=== PATIENT | male | born 1990 | race Caucasian/White ===

== ENCOUNTER 2019-04-23 17:10 | Emergency (ER) | payer OTHER ==
[~2019-04-23] VITALS: Ht 182.9 cm; Wt 83.9 kg
[~2019-04-23 17:10] MED LIST: ACETAMINOPHEN-1 EAC1 PO; MOTION RELIEF25 MG PO; NAPROSYN500 MG PO
[2019-04-23 18:31] LABS: ABSOLUTE BASOPHILS 0.1 thou/uL (0.0-0.2); ABSOLUTE EOSINOPHILS 0.2 thou/uL (0.0-0.7); ABSOLUTE LYMPHOCYTES 2.9 thou/uL (0.8-5.3); ABSOLUTE MONOCYTES 0.9 thou/uL (0.0-1.2); ABSOLUTE NEUTROPHILS 4.7 thou/uL (1.6-8.1); BASOPHILS 0.7 %; EOSINOPHILS 2.8 %; HEMATOCRIT 42.2 % (42.0-52.0); HEMOGLOBIN 14.4 gm/dL (14.0-18.0); LYMPHOCYTES 32.7 %; MCH 32.2 pg (26.0-34.0); MCHC 34.1 g/dL (28.0-37.0); MCV 94.3 fL (80.0-100.0); MONOCYTES 9.9 %; NUCLEATED RBCS 0 /100WBC; PLATELET COUNT* 205 thou/uL (150-400); POLYS 53.9 %; RBC 4.48 mil/uL (4.50-6.00); WBC 8.7 thou/uL (4.0-11.0)
[2019-04-23 18:37] LABS: CALCIUM 8.9 mg/dL (8.5-10.1); POTASSIUM 4.2 mmol/L (3.5-5.1)
[2019-04-23 18:41] LABS: URINE BILIRUBIN NEGATIVE (Negative); URINE BLOOD NEGATIVE (Negative); URINE CLARITY CLEAR; URINE COLOR YELLOW; URINE GLUCOSE-RANDOM NEGATIVE (Negative); URINE KETONES NEGATIVE (Negative); URINE LEUKOCYTES NEGATIVE (Negative); URINE NITRITE NEGATIVE (Negative); URINE PROTEIN NEGATIVE (Negative); URINE SPECIFIC GRAVITY 1.025 (1.005-1.030)
[2019-04-23 18:48] LABS: ALBUMIN 4.1 g/dL (3.4-5.0); TOTAL BILIRUBIN 0.5 mg/dL (<0.1-1.0); TOTAL PROTEIN 7.3 g/dL (6.4-8.2)
[2019-04-23 18:49] LABS: AMP/METHAMP Negative (Negative); BARBITURATES Negative (Negative); BENZODIAZEPINES Negative (Negative); COCAINE Negative (Negative); METHADONE Negative (Negative); OPIATES Negative (Negative); PCP Negative (Negative); THC POSITIVE (Negative)
[2019-04-23 19:10] VITALS: BP 120/64
[2019-04-23] MEDS ORDERED: MOTION RELIEF25 MG PO (19:10)
--- NOTE | 2019-04-24 16:07 | EKG ---
[place] [address] ELECTROCARDIOGRAM REPORT Name: FAYE WINTER Room: [facility]#: [id number] Admission: 04/23/19 Attend Phys: Discharge: 04/23/19 Date of : 88 Report #: [id number] THIS REPORT FOR: //name// [facility] ED Test Date: 2019-04-23 Test Time: 17:52:17 Pat Name: FAYE WINTER Department: Room: Gender: M Behavioral Technician: : 1990 Requested By: Jacinto Corey Order Number: [id number] MD: Robin José Measurements Intervals [place] Rate: 63 P: 38 SD: 125 QRS: 20 QRSD: 116 T: 28 QT: 418 QTc: 428 Interpretive Statements Sinus rhythm Nonspecific intraventricular conduction delay Baseline wander in lead(s) II,III,aVR,aVL,aVF,V3 Compared to ECG 10/12/2010 04:22:18 Intraventricular conduction delay now present Sinus tachycardia no longer present Atrial abnormality no longer present Incomplete right bundle-branch block no longer present I so I had the first of but with that the right final take C had wanted those and I had another one and another one to a little cream lumen contains chocolate chip needed the first involving the next 4 vitamins and there were good and eating with this he never Electronically Signed On 04-24-2019 16:06:56 CDT by Robin José [email or web address] <ELECTRONICALLY SIGNED> By: Robin José MD, [facility] 04/24/19 [id number] Robin José MD, FAC /EPI
== END 2019-04-23 19:11 | disposition home or self-care (01) ==
LOC: M.ERS 17:10
PROVIDERS: Nurse Practitioner Family
DX: R53.1 Weakness (principal); R42 Dizziness and giddiness; Z79.899 Other long term (current) drug therapy

== ENCOUNTER 2019-10-01 17:35 | Emergency (ER) | payer OTHER ==
[~2019-10-01] VITALS: Ht 182.9 cm; Wt 86.2 kg
[2019-10-01 17:49] VITALS: BP 164/80
== END 2019-10-01 19:35 | disposition home or self-care (01) ==
LOC: M.ERS 17:35
DX: M79.671 Pain in right foot (principal); F17.210 Nicotine dependence, cigarettes, uncomplicated